=== PATIENT | male | born 1970 | race African-American/Black ===

== ENCOUNTER 2019-05-02 08:38 | Emergency (ER) | payer OTHER ==
[~2019-05-02] VITALS: Ht 190.5 cm; Wt 158.8 kg
[2019-05-02 09:15] VITALS: BP 154/86
[2019-05-02 09:23] LABS: ABSOLUTE NEUTROPHILS 2.1 thou/uL (1.4-8.2); HEMATOCRIT 40.4 % (42.0-52.0); HEMOGLOBIN 13.7 gm/dL (14.0-18.0); LYMPHOCYTES 43.8 % (24.0-44.0); MCH 30.1 pg (26.0-34.0); MCHC 33.8 g/dL (28.0-37.0); MCV 88.9 fL (80.0-100.0); MONOCYTES 9.8 % (1.0-8.0); PLATELET COUNT 174 thou/uL (150-400); POLYS 41.4 % (36.0-66.0); RBC 4.54 mil/uL (4.50-6.00); RDW 14.4 % (10.5-14.5); WBC 5.1 thou/uL (4.0-11.0)
[2019-05-02 09:31] LABS: CALCIUM 8.8 mg/dL (8.5-10.1); CREATININE 1.1 mg/dL (0.7-1.3); POTASSIUM 4.1 mmol/L (3.5-5.1)
[2019-05-02 09:35] LABS: APTT 27.9 Seconds (24.5-32.8); PROTIME 10.5 Seconds (9.3-11.4)
[2019-05-02 09:37] LABS: ALBUMIN 3.3 g/dL (3.4-5.0); TOTAL BILIRUBIN 0.3 mg/dL (<0.1-1.0); TOTAL PROTEIN 7.4 g/dL (6.4-8.2)
[2019-05-02] MEDS ORDERED: ELIQUIS5 MG PO (10:08)
== END 2019-05-02 10:10 | disposition home or self-care (01) ==
LOC: ER 08:38
PROVIDERS: Emergency Medicine
DX: I82.402 Acute embolism and thrombosis of unspecified deep veins of left lower extremity (principal); E66.01 Morbid (severe) obesity due to excess calories; Z68.41 Body mass index [BMI] 40.0-44.9, adult

== ENCOUNTER → 2019-05-02 | Outpatient (CLI) | payer OTHER ==
[~2019-05-02] MED LIST: ELIQUIS5 MG PO
== END ==
LOC: ULTRA 07:46
DX: M79.662 Pain in left lower leg (principal); M79.89 Other specified soft tissue disorders

== ENCOUNTER 2020-06-11 19:50 | Emergency (ER) | payer OTHER ==
[~2020-06-11] VITALS: Ht 190.5 cm; Wt 181.4 kg
[2020-06-11] MEDS ORDERED: ELIQUIS5 MG PO (19:58)
[2020-06-11 20:56] VITALS: BP 176/88
== END 2020-06-11 20:57 | disposition home or self-care (01) ==
LOC: ER 19:50
DX: S61.210A Laceration without foreign body of right index finger without damage to nail, initial encounter (principal); E66.01 Morbid (severe) obesity due to excess calories; Z79.899 Other long term (current) drug therapy; Z68.43 Body mass index [BMI] 50.0-59.9, adult; W23.0XXA Caught, crushed, jammed, or pinched between moving objects, initial encounter; Y93.89 Activity, other specified; Y92.098 Other place in other non-institutional residence as the place of occurrence of the external cause; Y99.8 Other external cause status